=== PATIENT | female | born 1965 | race Caucasian/White ===

== ENCOUNTER 2018-02-23 11:26 | Emergency (ER) | payer BC ==
--- NOTE | 2018-02-23 12:51 | UC ---
Neck Pain HPI - HPI Summary HPI Summary: 52-year-old female comes in with a chief complaint of right upper neck swelling. This happened just prior to arrival while she was eating. The main area is just below the angle of the jaw on the right. It was mildly painful. Patient denies any dental pain. Pain is worse with opening and closing of the mouth. Denies any difficulty swallowing. No headache the patient feels well otherwise. - History of Current Complaint Chief Complaint: UCSkin Stated Complaint: SOFT TISSUE COMPLAINT Time Seen by Provider: 02/23/18 12:37 Pain Intensity: 3 - Allergies/Home Medications Allergies/Adverse Reactions: Allergies Allergy/AdvReac Type Severity Reaction Status Date / Time No Known Allergies Allergy Verified 02/23/18 12:02 Home Medications: Home Medications Cholecalciferol (Vitamin D3) [Vitamin D3] 1,000 unit PO 02/23/18 [History] Ferrous Sulfate [Iron High-Potency] 325 mg PO 02/23/18 [History] Fluticasone NASAL SPRAY 50MCG* [Flonase NASAL SPRAY 50MCG*] 2 spray BOTH NARES DAILY 02/23/18 [History Confirmed 02/23/18] LoraTADine TAB(NF) [Claritin 10 MG TAB(NF)] 10 mg PO DAILY 02/23/18 [History Confirmed 02/23/18] Magnesium Oxide [Magnesium] 500 mg PO 02/23/18 [History] Multivitamin [Multivitamins] 1 cap PO 02/23/18 [History] PMH/Surg Hx/FS Hx/Imm Hx Previously Healthy: Yes - Surgical History Surgical History: Yes Surgery Procedure, Year, and Place: 2 ovarian cysts, d&c, wisdom teeth extraction, bilat ear tubes. - Family History Known Family History: Negative: Diabetes - Social History Alcohol Use: Occasionally Substance Use Type: None Smoking Status (MU): Never Smoked Tobacco Review Of Systems Constitutional: Positive: Negative Skin: Positive: Negative Eyes: Positive: Negative ENT: Positive: Other - see hpi Respiratory: Positive: Negative Cardiovascular: Positive: Negative Gastrointestinal: Positive: Negative Musculoskeletal: Positive: Negative Neurological: Positive: Negative Psychological: Positive: Negative All Other Systems Reviewed And Are Negative: Yes Physical Exam Triage Information Reviewed: Yes Appearance: Well-Appearing, No Pain Distress, Well-Nourished Vital Signs: Initial Vital Signs Temp 97.9 F 02/23/18 11:57 Pulse 67 10/29/18 11:57 Resp 18 02/23/18 11:57 BP 127/62 02/23/18 11:57 Pulse Ox 100 02/23/18 11:57 Vital Signs Reviewed: Yes Eye Exam: Normal Eyes: Positive: Conjunctiva Clear ENT: Positive: Pharynx normal, TMs normal, Other. Negative: Tonsillar swelling , Tonsillar exudate, Muffled voice, Hoarse voice Neck: Positive: Other: - Patient has some swelling around any the right angle of the jaw is mildly tender to palpation it's not pulsatile. Is in the area of the right submandibular gland. The right parotid gland does not feel swollen on exam. Respiratory: Positive: No respiratory distress Musculoskeletal Exam: Normal Musculoskeletal: Positive: Strength Intact, ROM Intact Neurological Exam: Normal Neurological: Positive: Alert Psychological Exam: Normal Psychological: Positive: Normal Response To Family, Age Appropriate Behavior Skin Exam: Normal Neck Pain Course/Dx - Course Course Of Treatment: Order Information: CT SOFT TISSUE NECK W/O. Accession Number: [id number]. CPT: 49281. INDICATION: RIGHT upper neck swelling sudden onset at 11:30 AM while eating. Swelling has. subsequently subsided. COMPARISON: September 28, 2007 MRI. TECHNIQUE: Multidetector CT images skull base to lung apices without IV contrast. Multiplanar reformation. REPORT: Artifact from dental amalgam. Assessment of the neck viscera is limited without IV contrast. There is enlargement of the deep and superficial lobes of the RIGHT parotid gland compared. with the LEFT with mild surrounding periglandular soft tissue edema. No conspicuous stones. evident at the RIGHT parotid gland or along the expected course of the parotid duct. No. loculated soft tissue plane fluid collection evident. Unremarkable submandibular glands and thyroid gland. Unremarkable pharyngeal mucosal space contours, larynx, and subglottic airway. Symmetric. parapharyngeal fat. Negative for neck lymphadenopathy based on short axis size criteria. Dominant visualized. 0.9 cm short axis RIGHT jugulodigastric node within normal limits. Negative for calcific plaque at the carotid bifurcations. Unremarkable visualized lung apices. Clear partially visualized paranasal sinuses and mastoid air spaces. No fracture or suspicious osseous lesions evident. Preserved cervical spine disc spaces. IMPRESSION: #. There is enlargement of the deep and superficial lobes of the RIGHT parotid gland. compared with the LEFT with mild surrounding periglandular soft tissue edema. No. conspicuous stones evident at the RIGHT parotid gland or along the expected course of the. parotid duct. No loculated soft tissue plane fluid collection evident within limits of. noncontrast CT. Correlate for parotitis. Consider potential recent parotid duct stone. passage. . < Electronically signed by Isma Meneses MD in OV> 02/23/[address] Discuss[address] the CT results with the patient. Most probable cause of the parotid swelling is a past stone. Patient has continued to improve in clinic. I gave her the up -to-date patient's handout for parotitis. She'll go ahead and treat and follow- up with her primary care doctor. If she does not improve consider an ENT follow -up. - Differential Dx/Diagnosis Provider Diagnoses: parotitis Discharge - Sign-Out/Discharge Documenting (check all that apply): Patient Departure All imaging exams completed and their final reports reviewed: Yes - Discharge Plan Condition: Stable Disposition: HOME Prescriptions: Amoxicillin/Clavulanate TAB* [Augmentin TAB 875*] 875 mg PO BID #20 tab Patient Education Materials: Parotid Duct Obstruction (ED), Sialoadenitis (ED) Referrals: Joellen Guthrie MD [Primary Care Provider] - Dustin Hernandez MD [Medical Doctor] - Additional Instructions: FOLLOW UP WITH YOUR PRIMARY DOCTOR OR ENT IF NOT COMPLETELY IMPROVED. GET RECHECKED FOR ANY WORSENING OF YOUR CONDITION OR QUESTIONS OR CONCERNS. - Billing Disposition and Condition Condition: STABLE Disposition: Home
--- NOTE | 2018-02-23 13:36 | RAD ---
INDICATION: RIGHT upper neck swelling sudden onset at 11:30 AM while eating. Swelling has subsequently subsided. COMPARISON: September 28, 2007 MRI. TECHNIQUE: Multidetector CT images skull base to lung apices without IV contrast. Multiplanar reformation. REPORT: Artifact from dental amalgam. Assessment of the neck viscera is limited without IV contrast. There is enlargement of the deep and superficial lobes of the RIGHT parotid gland compared with the LEFT with mild surrounding periglandular soft tissue edema. No conspicuous stones evident at the RIGHT parotid gland or along the expected course of the parotid duct. No loculated soft tissue plane fluid collection evident. Unremarkable submandibular glands and thyroid gland. Unremarkable pharyngeal mucosal space contours, larynx, and subglottic airway. Symmetric parapharyngeal fat. Negative for neck lymphadenopathy based on short axis size criteria. Dominant visualized 0.9 cm short axis RIGHT jugulodigastric node within normal limits. Negative for calcific plaque at the carotid bifurcations. Unremarkable visualized lung apices. Clear partially visualized paranasal sinuses and mastoid air spaces. No fracture or suspicious osseous lesions evident. Preserved cervical spine disc spaces. IMPRESSION: #. There is enlargement of the deep and superficial lobes of the RIGHT parotid gland compared with the LEFT with mild surrounding periglandular soft tissue edema. No conspicuous stones evident at the RIGHT parotid gland or along the expected course of the parotid duct. No loculated soft tissue plane fluid collection evident within limits of noncontrast CT. Correlate for parotitis. Consider potential recent parotid duct stone passage.
[2018-02-23 13:56] VITALS: BP 129/74
== END 2018-02-23 14:35 | disposition home or self-care (01) ==
LOC: UCEAST 11:26
DX: K11.20 Sialoadenitis, unspecified (principal)
CPT/HCPCS: 70490; 99212; G0463

== ENCOUNTER 2019-05-27 08:37 | Emergency (ER) | payer BC ==
--- OUTSIDE RECORDS SUMMARY | 2019-05-27 08:43 | XMS REPORT | Continuity of Care Document ---
:1965 External Reference #:[id number] Author Name Verna Baig PA-C Address [address] [place] [address] Care Team Providers Name Role Phone Kourtney Santos M.D. - Neurology Care Team Information Steam Presser Shirley Garcia NP - Family Care Team Information Steam Presser [phone] Problems Description No Information Available Social History Type Date Description Comments Sex Unknown Cigarette Use Negative For Current Cigarette Smoker Tobacco Use Start: Unknown Never Smoked Cigars Tobacco Use Start: Unknown Never Smoked A Pipe Smokeless Tobacco Never Used Smokeless Tobacco ETOH Use Currently occasionally consumes alcohol Tobacco Use Start: Unknown Patient has never smoked Smoking Status Reviewed: 05/17/19 Patient has never smoked Allergies, Adverse Reactions, Alerts Description No Known Drug Allergies Medications Active Medications SIG Qnty Indications Ordering Provider Date Clindamycin HCL take 1 pill 3 42caps Dustin Antoine 05/10/2019 300mg Capsules times a day MD Mary for 2 weeks. Prednisone 4 tabs po 30tabs Dustin Antoine 05/10/2019 10mg Tablets every day x3 MD Mary d, then 3 tabs po every day x3 d, then 2 tabs po every day x3d, then 1 tab po qd x3d, then off Meclizine HCL one po tid Unknown 25mg Iron 1 by mouth as Shirley Garcia GRATING MACHINE OPERATOR 28mg Tablets needed Omeprazole Shirley Garcia GRATING MACHINE OPERATOR 20mg Capsules DR Donovan Treadwell MD, 80mcg/Act Aerosol Paxton Treadwell MD, 200-25mcg/Inh Christopher Aerosol Levocetirizine Eben FLANAGAN, Dihydrochloride Christopher 5mg Tablets Hydroxychloroquine Cherrie Llanos, Sulfate Adria 200mg Tablets Vitamin E qd Unknown 180mg Capsules Magnesium as directed Unknown 400mg Tablets Multi For Her 1 by mouth Unknown Capsules every day Hair/Skin/Nails qd Unknown Capsules Immunizations Description No Information Available Vital Signs Date Vital Result Comment 05/17/2019 10:44am Weight 240.00 lb Weight 108.864 kg Height 66.25 inches 5'6.25" Height in cm's 168.3 cm BMI (Body Mass Index) 38.4 kg/m2 05/10/2019 2:08pm Weight 240.00 lb Weight 108.864 kg Height 66.25 inches 5'6.25" Height in cm's 168.3 cm BMI (Body Mass Index) 38.4 kg/m2 Results Test Acquired Date Facility Test Result H/L Range Note Wound 05/10/2019 [facility] Wound/Misc SEE RESULT 1 Culture/Sens c/o Department of Laboratories [place] [address] Stain [phone] 1 SEE RESULT BELOW Name: AFR[place] TIWARI : [address]: Verna Baig PA-C Acct: [id number] Unit: [id number] AGE: 53 Location: [facility] Re05/10/19 SEX: F Status: REG REF SPEC: [id number] OVI: 05/10/19-[address]: Verna Baig PA-C REQ: [id number] RECD: 05/11/19 STATUS: COMP _ SOURCE: MISC SOURC SPDESC: ORDERED: Culture Stain COMMENTS: [id number] Right sinus Specimen Description right sinus Procedure Result Reported Site Wound/Misc Gram Stain Final 05/11/19- 1603 ML 2+ Nucleated Cells No Neutrophils Observed No Organisms Seen Wound/Misc Culture Final 05/13/19- 0845 ML No Growth Day 2 * ML - Main Lab . END OF REPORT DEPARTMENT OF PATHOLOGY, [address] [place] [address] Jeronimo Pro M.D. Director [facility] # [id number] Procedures Date Code Description Status 05/17/2019 97110 Tympanometry Completed 05/10/2019 07327 Tympanometry Completed 05/10/2019 76253 Comprehensive Audiogram Completed 05/10/2019 73758 Nasal Endoscopy, Diagnostic Completed Medical Devices Description No Information Available Encounters Type Date Location Provider Dx Diagnosis Office Visit 05/17/2019 Brenna Baig J32.8 Other chronic 10:45a 04-28-2019 PA-Adriana sinusitis H65.22 Chronic serous otitis media, left ear H69.83 Other specified disorders of Eustachian tube, bilateral Office Visit 05/10/2019 2:15p Brenna 04-28-2019 Verna Baig J32.8 Other chronic PA-C sinusitis H65.22 Chronic serous otitis media, left ear H69.83 Other specified disorders of Eustachian tube, bilateral Assessments Date Code Description Provider 05/17/2019 J32.8 Other chronic sinusitis Verna Baig PA-C 05/17/2019 H65.22 Chronic serous otitis media, left ear Verna Baig PA-C 05/17/2019 H69.83 Other specified disorders of Eustachian tube, Verna Baig PA-C bilateral 05/10/2019 J32.8 Other chronic sinusitis Verna Baig PA-C 05/10/2019 H65.22 Chronic serous otitis media, left ear Marry Virgilio, AU.D 05/10/2019 H65.22 Chronic serous otitis media, left ear Verna Baig PA-C 05/10/2019 H69.83 Other specified disorders of Eustachian tube, Marry Poole , AU.D bilateral 05/10/2019 H69.83 Other specified disorders of Eustachian tube, Verna Baig PA-C bilateral Plan of Treatment 05/17/2019 - FELIX WellsCJ32.8 Other chronic [id number] Chronic serous otitis media, left earH69.83 Other specified disorders of Eustachian tube , bilateralNew Xrays:CT Sinus without, Ordered: 05/17/19 Functional Status Description No Information Available Mental Status Description No Information Available Referrals Description No Information Available
--- OUTSIDE RECORDS SUMMARY | 2019-05-27 08:43 | XMS REPORT | Continuity of Care Document ---
:1965 External Reference #:[id number] Author Name Dustin Hernandez MD Address [address] [place] [address] Care Team Providers Name Role Phone Kourtney Santos M.D. - Neurology Care Team Information Filling Machine Set Up Mechanic [phone] Shirley Garcia NP - Family Care Team Information Filling Machine Set Up Mechanic [phone] Problems Description No Information Available Social History Type Date Description Comments Sex Unknown Cigarette Use Negative For Current Cigarette Smoker Tobacco Use Start: Unknown Never Smoked Cigars Tobacco Use Start: Unknown Never Smoked A Pipe Smokeless Tobacco Never Used Smokeless Tobacco ETOH Use Currently occasionally consumes alcohol Tobacco Use Start: Unknown Patient has never smoked Smoking Status Reviewed: 05/25/19 Patient has never smoked Allergies, Adverse Reactions, Alerts Description No Known Drug Allergies Medications Active Medications SIG Qnty Indications Ordering Provider Date Ondansetron HCL 1 tab by mouth 30tabs Dustin Antoine 05/25/2019 8mg Tablets every 8 hours MD Mary as needed for nausea Ofloxacin (Otic) 4 drops to 10ml Dustin Antoine 05/25/2019 0.3% Solution left ear twice MD Mary a day for 3 days Meclizine HCL one po tid Unknown 25mg Iron 1 by mouth as Shirley Garcia NP 28mg Tablets needed Omeprazole Shirley Garcia NP 20mg Capsules DR Bucky Treadwell MD, Dihydrochloride Christopher 5mg Tablets Hydroxychloroquine Cherrie Llanos, Sulfate Adria 200mg Tablets Vitamin E qd Unknown 180mg Capsules Magnesium as directed Unknown 400mg Tablets Multi For Her 1 by mouth Unknown Capsules every day Hair/Skin/Nails qd Unknown Capsules History Medications Clindamycin HCL take 1 pill 3 42caps Dustin Hernandez, 05/10/2019 - 300mg times a day for 05/24/2019 Capsules 2 weeks. Prednisone 4 tabs po every 30tabs Dustin Hernandez, 05/10/2019 - 10mg Tablets day x3 d, then 3 05/24/2019 tabs po every day x3 d, then 2 tabs po every day x3d, then 1 tab po qd x3d, then off Immunizations Description No Information Available Vital Signs Date Vital Result Comment 05/25/2019 3:59pm Weight 240.00 lb Weight 108.864 kg Height 66.25 inches 5'6.25" Height in cm's 168.3 cm BMI (Body Mass Index) 38.4 kg/m2 05/17/2019 10:44am Weight 240.00 lb Weight 108.864 kg Height 66.25 inches 5'6.25" Height in cm's 168.3 cm BMI (Body Mass Index) 38.4 kg/m2 Results Test Acquired Date Facility Test Result H/L Range Note Wound 05/10/2019 [facility] Wound/Misc SEE RESULT 1 Culture/Sens c/o Department of Laboratories [place] [address] Stain [phone] 1 SEE RESULT BELOW Name: ABE TIWARI : [address]: Verna Baig PA-C Acct: [id number] Unit: [id number] AGE: 53 Location: [facility] Re05/10/19 SEX: F Status: REG REF SPEC: [id number] OVI: 05/10/19-1537 [facility] DR: Verna Baig PA-C REQ: [id number] RECD: 05/11/19 STATUS: COMP _ SOURCE: MISC SOURC SPDESC: ORDERED: Culture Stain COMMENTS: [id number] Right sinus Specimen Description right sinus Procedure Result Reported Site Wound/Misc Gram Stain Final 05/11/19- 1603 ML 2+ Nucleated Cells No Neutrophils Observed No Organisms Seen Wound/Misc Culture Final 05/13/19- 0845 ML No Growth Day 2 * ML - Main Lab . END OF REPORT DEPARTMENT OF PATHOLOGY, [address], [place], [place] [address] Jeronimo Pro M.D. Director [facility] # [id number] Procedures Date Code Description Status 05/25/2019 98839 Tympanostomy W/Tube Local Or Topical Anes. Completed 05/17/2019 44770 Tympanometry Completed 05/10/2019 13137 Tympanometry Completed 05/10/2019 78481 Comprehensive Audiogram Completed 05/10/2019 70298 Nasal Endoscopy, Diagnostic Completed Medical Devices Description No Information Available Encounters Type Date Location Provider Dx Diagnosis Office Visit 05/17/2019 Chantal Hubbard32.8 Other chronic 10:45a 04-28-2019 PA-C sinusitis H65.22 Chronic serous otitis media, left ear H69.83 Other specified disorders of Eustachian tube, bilateral Office Visit 05/10/2019 2:15p Brenna 04-28-2019 Chantal Wells32.8 Other chronic PA-C sinusitis H65.22 Chronic serous otitis media, left ear H69.83 Other specified disorders of Eustachian tube, bilateral Assessments Date Code Description Provider 05/25/2019 J32.9 Chronic sinusitis, unspecified Dustin Hernandez MD 05/25/2019 H68.022 Chronic Eustachian salpingitis, left ear Dustin Hernandez MD 05/17/2019 J32.8 Other chronic sinusitis Verna Baig PA-C 05/17/2019 H65.22 Chronic serous otitis media, left ear Verna Baig PA-C 05/17/2019 H69.83 Other specified disorders of Eustachian Marry Nabeelst, AU.D tube, bilateral 05/17/2019 H69.83 Other specified disorders of Eustachian JOLYNN Wells-C tube, bilateral 05/10/2019 J32.8 Other chronic sinusitis Verna Baig PA-C 05/10/2019 H65.22 Chronic serous otitis media, left ear Marry Crast, AU.D 05/10/2019 H65.22 Chronic serous otitis media, left ear Verna Baig PA-C 05/10/2019 H69.83 Other specified disorders of Eustachian Marry Poole AU.D tube, bilateral 05/10/2019 H69.83 Other specified disorders of Eustachian Verna Baig PA-C tube, bilateral Plan of Treatment Future Appointment(s):06/24/2019 2:15 pm - Dustin Hernandez MD at [facility] - Dustin Hernandez, J32.9 Chronic sinusitis, [id number] Chronic Eustachian salpingitis, left ear Functional Status Description No Information Available Mental Status Description No Information Available Referrals Description No Information Available
--- OUTSIDE RECORDS SUMMARY | 2019-05-27 08:43 | XMS REPORT | Continuity of Care Document ---
:1965 External Reference #:[id number] Author Name Verna Baig PA-C Address [address] [place] [address] Care Team Providers Name Role Phone Kourtney Santos M.D. - Neurology Care Team Information Classification And Treatment Director Shirley Garcia NP - Family Care Team Information Classification And Treatment Director [phone] Problems Description No Information Available Social History Type Date Description Comments Sex Unknown Cigarette Use Negative For Current Cigarette Smoker Tobacco Use Start: Unknown Never Smoked Cigars Tobacco Use Start: Unknown Never Smoked A Pipe Smokeless Tobacco Never Used Smokeless Tobacco ETOH Use Currently occasionally consumes alcohol Tobacco Use Start: Unknown Patient has never smoked Smoking Status Reviewed: 05/09/19 Patient has never smoked Allergies, Adverse Reactions, [...] Iron 1 by mouth as Shirley Garcia SEMICONDUCTOR PACKAGE SYMBOL STAMPER 28mg Tablets needed Omeprazole Shirley Garcia SEMICONDUCTOR PACKAGE SYMBOL STAMPER 20mg Capsules DR Donovan Treadwell MD, 80mcg/Act [...] Available Vital Signs Date Vital Result Comment 05/10/2019 2:08pm Weight 240.00 lb Weight 108.864 kg Height 66.25 inches 5'6.25" Height in cm's 168.3 cm BMI (Body Mass Index) 38.4 kg/m2 10/13/2013 2:58pm BP Systolic 137 mmHg BP Diastolic 100 mmHg Heart Rate 70 /min Respiratory Rate 16 /min Weight 214.00 lb Weight 97.070 kg Height 66.25 inches 5'6.25" Height in cm's 168.3 cm BMI (Body Mass Index) 34.3 kg/m2 Results Description No Information Available Procedures Date Code Description Status 05/10/2019 74965 Tympanometry Completed 05/10/2019 56031 Comprehensive Audiogram Completed 05/10/2019 06269 Nasal Endoscopy, Diagnostic Completed Medical Devices Description No Information Available Encounters Type Date Location Provider Dx Diagnosis Office Visit 05/10/2019 [facility] Chantal Wells32.8 Other chronic 2:15p 04-28-2019 [facility] sinusitis H65.22 Chronic serous otitis media, left ear H69.83 Other specified disorders of Eustachian tube, bilateral Assessments Date Code Description Provider 05/10/2019 J32.8 Other chronic sinusitis Verna Baig PA-C 05/10/2019 H65.22 Chronic serous otitis media, left ear Verna Baig PA-C 05/10/2019 H69.83 Other specified disorders of Eustachian tube, Verna Baig PA-C bilateral Plan of Treatment Future Appointment(s):05/24/2019 2:45 pm - Verna Baig PA-C at [facility] - FELIX WellsCJ32.8 Other chronic [id number] Chronic serous otitis media, left earH69.83 Other specified disorders of Eustachian tube , bilateralFollow up:KRYSTLE 2-3 weeks recheck with scope Functional Status Description No Information Available Mental Status Description No Information Available Referrals Description No Information Available
--- OUTSIDE RECORDS SUMMARY | 2019-05-27 08:44 | XMS REPORT | Continuity of Care Document ---
:1965 External Reference #:[id number] Author Name Shirley Garcia N.P. (transmitted by agent of provider Brenda Powell) Address [address], [place] [address] Care Team Providers Name Role Phone Rosaura Swan MD - Internal Care Team Information Hotel Director Medicine Joellen Guthrie MD - Internal Care Team Information Hotel Director [phone] Medicine Problems Active Problems Provider Date Asthma without status asthmaticus Shanta Galindo MD Onset: 08/16/2015 Hematuria syndrome Shirley Garcia, N.PTresa Onset: 01/21/2011 Allergic rhinitis Shirley Garcia N.PTresa Onset: 01/21/2011 Overlapping malignant melanoma of skin Shirley Garcia N.PTresa Onset: 01/21/2011 Dyspnea Shanta Galindo MD Onset: 08/01/2015 Obesity Shanta Galindo MD Onset: 08/01/2015 Chest pain Thomas Lyons MD Onset: 02/24/2019 Renal function tests abnormal Thomas Lyons MD Onset: 02/24/2019 Malaise and fatigue Thomas Lyons MD Onset: 02/24/2019 Wheezing Thomas Lyons MD Onset: 02/24/2019 Cough Thomas Lyons MD Onset: 02/24/2019 Social History Type Date Description Comments Sex Unknown ETOH Use Currently consumes alcohol 1 monthly Tobacco Use Start: Unknown Patient has never smoked Smoking Status Reviewed: 05/03/19 Patient has never smoked Exercise Type/Frequency Exercises sporadically Allergies, Adverse Reactions, Alerts Active Allergies Reaction Severity Comments Date No Known Drug Allergy 12/20/2009 Medications Active Medications SIG Qnty Indications Ordering Date Provider Hydroxychloroquine take 2 tablets 90tabs Adria Grier, 06/09/2018 Sulfate by mouth every M.D. 200mg Tablets day ongoing D3 Super Strength take one 90caps Shirley Garcia, 02/05/2017 2000Unit capsule/tablet N.P. Capsules daily by mouth Omeprazole Take 1 Capsule 30caps R06.02 Shirley Jose, 06/20/[address] By Mouth Every N.P. Day Fluticasone Propionate spray one 16units Shirley Garcia, 04/22/2012 spray in each N.P. 50mcg/Act Suspension nostril once daily Claritin 1 tablet dailY 90caps Estephania Juan, 10mg Capsules M.D., FACP Slow Fe 1 by mouth Unknown 160(50Fe) mg Tablets ER every day Hair/Skin/Nails 1 - 2 by mouth Unknown Tablets every day Multi Complete daily Unknown Capsules Magnesium 1 by mouth Unknown 400mg Tablets every day (OTC) History Medications Doxycycline Hyclate 1 by mouth twice 20tabs R05 Shirley Garcia, 03/31/2019 - a day x 10 days N.P. 04/10/2019 100mg Tablets Azithromycin two tabs day one, 6tabs R05 Shirley Garcia, 03/31/2019 - 250mg one daily till N.P. 03/31/2019 Tablets gone Advair Diskus inhale 1 puff by 60units R05 Shirley Garcia, 03/31/2019 - mouth two times a N.P. 05/03/2019 250-50mcg/Dose day Aerosol Fluconazole one by mouth 5tabs Shirley Garcia, 03/12/2019 - 150mg every 3 days for N.P. 03/30/2019 Tablets 5 doses Levaquin 1 by mouth daily 10tabs J20.9 Shirley Garcia, 03/11/2019 - 500mg for 7 days N.P. 03/18/2019 Tablets Prednisone 4 tablets by 40tabs J20.9 Shirley Garcia, 03/11/2019 - 10mg mouth for 4 N.P. 03/27/2019 Tablets days,3 tablets by mouth for 4 days, 2 tablets by mouth for 4 days, 1 tablet by mouth for 4 days Flovent HFA Inhale 2 Puffs By 12units J20.9 Shirley Garcia, 03/11/2019 - Mouth Two Times N.P. 03/30/2019 110mcg/Act Aerosol Daily Furosemide 1 by mouth every 4tabs Thomas Lyons MD 03/03/2019 - 20mg day for 4 days 03/30/2019 Tablets then stop. Proair Respiclick 2 puffs by mouth 1units R05 Ambar Chung, 02/10/2019 - every 4-6 hours M.D. 03/30/2019 108(90Base) mcg/Act as needed for Aerosol cough or shortness of breath Amoxicillin/Clavulan 1 tab by mouth 20tabs J32.9 Ambar Chung, 2018 - ate Potassium twice a day X 10 M.D. 02/20/2019 days 875-125mg Tablets Immunizations CPT Code Status Date Vaccine Reaction Lot # [id number] Given 02/03/2019 Influenza Virus Vaccine, Quadrivalent, Split, Preservative Free 14187 Given 03/10/2018 Influenza Virus Vaccine, Quadrivalent, Split, Preservative Free 96331 Given 02/05/2017 Tdap - [id number] Tetanus/Diptheria/Acellula r Pertussis 53814 Given 02/05/2017 Influenza Virus Vaccine, [id number] Quadrivalent, Split, Preservative Free 55958 Given 02/05/2016 Influ Virus Vaccine, no reaction noted ... [id number] Quadrivalent, Split Virus, [id number] [address] Given 01/30/2015 Influenza Virus Vaccine, [id number] Quadrivalent, Split, Preservative Free 53172 Given 01/28/2014 Influenza Virus Vaccine, [id number] Quadrivalent, Split, Preservative Free 59714 Given 01/25/2013 Flu Vaccine Split Virus [id number] Preservative Free For Indiv 3Yr Older Q2038 Given 01/24/2012 Fluzone Vaccine [id number] 77063 Given 01/21/2011 Influenza Virus 3Yrs & [id number] Over 22293 Given 02/02/2010 Influenza Virus 3Yrs & Over 02309 Given 02/06/2009 Influenza Virus 3Yrs & Over 27111 Given 02/18/2008 Influenza Virus 3Yrs & Over 15407 Given 03/10/2007 Influenza Virus 3Yrs & Over 97827 Given 11/18/2006 Tdap - Tetanus/Diptheria/Acellula r Pertussis 61834 Given 02/13/2006 Influenza Virus 3Yrs & Over Vital Signs Date Vital Result Comment 05/03/2019 2:29pm Height 66.5 inches 5'6.50" Weight 247.12 lb Heart Rate 70 /min BP Systolic Sitting 122 mmHg BP Diastolic Sitting 80 mmHg Body Temperature 98.3 F O2 % BldC Oximetry 97 % BMI (Body Mass Index) 39.3 kg/m2 03/31/2019 3:04pm Height 66.5 inches 5'6.50" Weight 246.50 lb Heart Rate 78 /min BP Systolic Sitting 128 mmHg BP Diastolic Sitting 75 mmHg Body Temperature 97.5 F O2 % BldC Oximetry 97 % BMI (Body Mass Index) 39.2 kg/m2 Results Test Acquired Date Facility Test Result H/L Range Note Laboratory test 03/31/2019 [facility] Lyme Screen Negative Negative finding [address] W/ [place] [address] WB [phone] Tick-Borne Panel 03/31/2019 [facility] Babesia Negative Negative PCR Blood [address] [place] [address] [phone] Babesia ducani Negative Negative Babesia divergens/Mo-1 Negative Negative 1 Anaplasma phagocytophilum Negative Negative Ehrlichia chaffeensis Negative Negative Ehrlichia ewingii/canis Negative Negative Ehrlichia muris eauclairensis Negative Negative 2 B. miyamotoi PCR, B Negative Negative 3 Laboratory test 03/24/2019 [facility] Erythrocyte Sed 2 mm/Hr Normal 0-29 [address] [place] [address] [phone] C Reactive Protein 1.54 mg/L Normal <8.01 5 CBC Auto 03/24/2019 [facility] White Blood 9.5 10^3/uL Normal 3.5-10.[address] [place] [address] [phone] Red Blood Count 4.90 10^6/uL High 3.70-4.87 Hemoglobin 14.1 g/dL Normal 12.0-16.0 Hematocrit 42 % Normal 35-47 Mean Corpuscular Volume 85 fL Normal 80-97 Mean Corpuscular Hemoglobin 29 pg Normal 27-31 Mean Corpuscular HGB Conc 34 g/dL Normal 31-36 Red Cell Distribution Width 13 % Normal 10-15 Platelet Count 258 10^3/uL Normal 150-450 Mean Platelet Volume 8.6 fL Normal 7.4-10.4 Abs Neutrophils 7.7 10^3/uL Normal 1.5-7.7 Abs Lymphocytes 1.2 10^3/uL Normal 1.0-4.8 Abs Monocytes 0.5 10^3/uL Normal 0-0.8 Abs Eosinophils 0.1 10^3/uL Normal 0-0.6 Abs Basophils 0.0 10^3/uL Normal 0-0.2 Abs Nucleated RBC 0.0 10^3/uL Granulocyte % 81.0 % Lymphocyte % 12.9 % Monocyte % 5.1 % Eosinophil % 0.8 % Basophil % 0.2 % Nucleated Red Blood Cells % 0.0 Comp Metabolic 03/24/2019 [facility] Sodium 141 mmol/L Normal 135-[address] [place] [address] [phone] Potassium 4.4 mmol/L Normal 3.5-5.0 Chloride 104 mmol/L Normal 101-111 Co2 Carbon Dioxide 30 mmol/L Normal 22-32 Anion Gap 7 mmol/L Normal 2-11 Calcium 9.8 mg/dL Normal 8.6-10.3 Albumin 4.1 g/dL Normal 3.2-5.2 Total Bilirubin 0.30 mg/dL Normal 0.2-1.0 Glucose 96 mg/dL Normal 70-100 Blood Urea Nitrogen 19 mg/dL Normal 6-24 Creatinine 0.96 mg/dL High 0.51-0.95 BUN/Creatinine Ratio 19.8 Normal 8-20 Total Protein 6.4 g/dL Normal 6.4-8.9 Globulin 2.3 g/dL Normal 2-4 Albumin/Globulin Ratio 1.8 Normal 1-3 Alkaline Phosphatase 62 U/L Normal 34-104 Alt 22 U/L Normal 7-52 Ast 15 U/L Normal 13-39 Egfr Non- 61.3 >60 Egfr 74.1 >60 6 CBC Auto 02/25/2019 [facility] White Blood 5.1 10^3/uL Normal 3.5-10.8 [place] [address] [phone] Red Blood Count 4.74 10^6/uL Normal 3.70-4.87 Hemoglobin 13.5 g/dL Normal 12.0-16.0 Hematocrit 40 % Normal 35-47 Mean Corpuscular Volume 85 fL Normal 80-97 Mean Corpuscular Hemoglobin 28 pg Normal 27-31 Mean Corpuscular HGB Conc 33 g/dL Normal 31-36 Red Cell Distribution Width 13 % Normal 10-15 Platelet Count 225 10^3/uL Normal 150-450 Mean Platelet Volume 9.0 fL Normal 7.4-10.4 Abs Neutrophils 3.1 10^3/uL Normal 1.5-7.7 Abs Lymphocytes 1.3 10^3/uL Normal 1.0-4.8 Abs Monocytes 0.4 10^3/uL Normal 0-0.8 Abs Eosinophils 0.2 10^3/uL Normal 0-0.6 Abs Basophils 0.0 10^3/uL Normal 0-0.2 Abs Nucleated RBC 0.0 10^3/uL Granulocyte % 61.0 % Lymphocyte % 26.1 % Monocyte % 7.7 % Eosinophil % 4.6 % Basophil % 0.6 % Nucleated Red Blood Cells % 0.0 Laboratory 02/25/2019 [facility] TSH (Thyroid 1.34 Normal 0.34 -5.60 test finding Stim Horm) mcIU/[place] [address] [phone] Vitamin D Total 25(Oh) 42.8 ng/mL Normal 20-50 7 Comp Metabolic 02/25/2019 [facility] Sodium 141 mmol/L Normal 135-145 [place] [address] [phone] Potassium 4.1 mmol/L Normal 3.5-5.0 Chloride 106 mmol/L Normal 101-111 Co2 Carbon Dioxide 29 mmol/L Normal 22-32 Anion Gap 6 mmol/L Normal 2-11 Glucose 79 mg/dL Normal 70-100 Blood Urea Nitrogen 16 mg/dL Normal 6-24 Creatinine 0.97 mg/dL High 0.51-0.95 BUN/Creatinine Ratio 16.5 Normal 8-20 Calcium 9.8 mg/dL Normal 8.6-10.3 Total Protein 6.3 g/dL Low 6.4-8.9 Albumin 4.2 g/dL Normal 3.2-5.2 Globulin 2.1 g/dL Normal 2-4 Albumin/Globulin Ratio 2.0 Normal 1-3 Total Bilirubin 0.30 mg/dL Normal 0.2-1.0 Alkaline Phosphatase 62 U/L Normal 34-104 Alt 16 U/L Normal 7-52 Ast 16 U/L Normal 13-39 Egfr Non- 60.5 >60 Egfr 73.3 >60 8 Laboratory test 02/25/2019 [facility] B-Type 24 pg/mL <=[address] [place] [address] Peptide BNP [phone] D Dimer Quantitative < 200 ng/mL Normal Less Than 230 9 Order 02/24/2019 [facility] In-House EKG viewed by Dr. Lyons Urinalysis Profile 12/23/2018 [facility] Urine Color Yellow [address] [place] [address] [phone] Urine Appearance Cloudy Urine Specific [place] 1.023 Normal 1.010-1.030 Urine pH 5.0 Normal 5-9 Urine Urobilinogen Negative Negative Urine Ketones Negative Negative Urine Protein Negative Negative Urine Leukocytes Negative Negative Urine Blood Negative Negative * * Abnormal Negative 10 Urine Nitrite Negative Negative Urine Bilirubin Negative Negative Urine Glucose Negative Negative Laboratory test 12/17/2018 [facility] Erythrocyte Sed 8 mm/Hr Normal 0-[address] [place] [address] [phone] Reactive Protein 3.58 mg/L Normal <8.01 CBC Auto 12/17/2018 [facility] White Blood 4.2 10^3/uL Normal 3.5-10.[address] [place] [address] [phone] Red Blood Count 4.93 10^6/uL High 3.70-4.87 Hemoglobin 13.8 g/dL Normal 12.0-16.0 Hematocrit 42 % Normal 35-47 Mean Corpuscular Volume 86 fL Normal 80-97 Mean Corpuscular Hemoglobin 28 pg Normal 27-31 Mean Corpuscular HGB Conc 33 g/dL Normal 31-36 Red Cell Distribution Width 14 % Normal 10-15 Platelet Count 234 10^3/uL Normal 150-450 Mean Platelet Volume 8.7 fL Normal 7.4-10.4 Abs Neutrophils 2.4 10^3/uL Normal 1.5-7.7 Abs Lymphocytes 1.3 10^3/uL Normal 1.0-4.8 Abs Monocytes 0.4 10^3/uL Normal 0-0.8 Abs Eosinophils 0.1 10^3/uL Normal 0-0.6 Abs Basophils 0.0 10^3/uL Normal 0-0.2 Abs Nucleated RBC 0.0 10^3/uL Granulocyte % 56.0 % Lymphocyte % 31.3 % Monocyte % 8.8 % Eosinophil % 3.1 % Basophil % 0.8 % Nucleated Red Blood Cells % 0.0 Comp Metabolic 12/17/2018 [facility] Sodium 141 mmol/L Normal 135-[address] [place] [address] [phone] Potassium 4.5 mmol/L Normal 3.5-5.0 Chloride 106 mmol/L Normal 101-111 Co2 Carbon Dioxide 30 mmol/L Normal 22-32 Anion Gap 5 mmol/L Normal 2-11 Glucose 74 mg/dL Normal 70-100 Blood Urea Nitrogen 14 mg/dL Normal 6-24 Creatinine 0.98 mg/dL High 0.51-0.95 BUN/Creatinine Ratio 14.3 Normal 8-20 Calcium 9.5 mg/dL Normal 8.6-10.3 Total Protein 6.5 g/dL Normal 6.4-8.9 Albumin 4.4 g/dL Normal 3.2-5.2 Globulin 2.1 g/dL Normal 2-4 Albumin/Globulin Ratio 2.1 Normal 1-3 Total Bilirubin 0.40 mg/dL Normal 0.2-1.0 Alkaline Phosphatase 70 U/L Normal 34-104 Alt 16 U/L Normal 7-52 Ast 16 U/L Normal 13-39 Egfr Non- 59.8 >60 Egfr 72.4 >60 11 1 ADDITIONAL INFORMATION This test was developed and its performance characteristics determined by [facility] in a manner consistent with CLIA requirements. This test has not been cleared or approved by the U.S. Food and Drug Administration. 2 ADDITIONAL INFORMATION This test was developed and its performance characteristics determined by [facility] in a manner consistent with CLIA requirements. This test has not been cleared or approved by the U.S. Food and Drug Administration. 3 ADDITIONAL INFORMATION This test was developed and its performance characteristics determined by [facility] in a manner consistent with CLIA requirements. This test has not been cleared or approved by the U.S. Food and Drug Administration. Test Performed by: [place] [address] Milled Lumber Grader: Heath Mcmahon M.D. Ph.D.; CLIA# [id number] 4 Please check labs 2 days before follow up 5 Please check labs 2 days before follow up 6 Because ethnic data is not always readily available, this report includes an eGFR for both -Americans and non- Americans. The National Kidney Disease Education Program (NKDEP) does not endorse the use of the MDRD equation for patients that are not between the ages of 18 and 70, are , have extremes of body size, muscle mass, or nutritional status, or are non- or non-. According to the National Kidney Foundation, irrespective of diagnosis, the stage of the disease is based on the level of kidney function: Stage Description GFR(mL/min/1.73 m(2)) 1 Kidney damage with normal or decreased GFR 90 2 Kidney damage with mild decrease in GFR 60-89 3 Moderate decrease in GFR 30-59 4 Severe decrease in GFR 15-29 5 Kidney failure <15 (or dialysis) 7 Total 25-Hydroxyvitamin D2 and D3 (25-OH-VitD) <10 ng/mL (severe deficiency) 10-19 ng/mL (mild to moderate deficiency) 20-50 ng/mL (optimum levels) 51-80 ng/mL (increased risk of hypercalciuria) >80 ng/mL (toxicity possible) 8 Because ethnic data is not always readily available, this report includes an eGFR for both -Americans and non- Americans. The National Kidney Disease Education Program (NKDEP) does not endorse the use of the MDRD equation for patients that are not between the ages of 18 and 70, are , have extremes of body size, muscle mass, or nutritional status, or are non- or non-. According to the National Kidney Foundation, irrespective of diagnosis, the stage of the disease is based on the level of kidney function: Stage Description GFR(mL/min/1.73 m(2)) 1 Kidney damage with normal or decreased GFR 90 2 Kidney damage with mild decrease in GFR 60-89 3 Moderate decrease in GFR 30-59 4 Severe decrease in GFR 15-29 5 Kidney failure <15 (or dialysis) 9 Please note: The following may produce a false positive D Dimer test: - Rheumatoid factor greater than 60 IU/ml - Plasma hemoglobin greater than 0.05 gm/dl - Bilirubin greater than 50 mg/dl - Lipids greater than 1000 mg/dl - FDP greater than 20 ug/ml 10 *Ascorbic acid is present which may interfere with detection of blood. 11 Because ethnic data is not always readily available, this report includes an eGFR for both -Americans and non- Americans. The National Kidney Disease Education Program (NKDEP) does not endorse the use of the MDRD equation for patients that are not between the ages of 18 and 70, are , have extremes of body size, muscle mass, or nutritional status, or are non- or non-. According to the National Kidney Foundation, irrespective of diagnosis, the stage of the disease is based on the level of kidney function: Stage Description GFR(mL/min/1.73 m(2)) 1 Kidney damage with normal or decreased GFR 90 2 Kidney damage with mild decrease in GFR 60-89 3 Moderate decrease in GFR 30-59 4 Severe decrease in GFR 15-29 5 Kidney failure <15 (or dialysis) Procedures Date Code Description Status 04/26/2019 348567449 Diabetic Retinal Eye Exam Completed 03/30/2019 99340 ECHO Transthorasic Realtime 2D W Doppler & Color Flow Completed Hosp 02/24/2019 78742 EKG Tracing & Interpretation Completed 06/29/2018 [id number] Colonoscopy Completed 05/22/2018 [id number] Mammogram Completed 03/18/2017 [id number] Mammogram Completed 03/01/2016 [id number] Mammogram Completed 02/28/2015 [id number] Mammogram Completed 02/24/2014 [id number] Mammogram Completed 02/04/2013 [id number] Mammogram Completed 08/12/2012 [id number] Mammogram Completed 02/04/2012 [id number] Mammogram Completed 02/08/2011 [id number] Mammogram Completed 01/16/2009 [id number] Mammogram Completed Medical Devices Description No Information Available Encounters Type Date Location Provider Dx Diagnosis Office Visit 03/31/2019 3:00p [facility] Shirley Garcia, N.P. R05 Cough - Ccmob R53.81 Other malaise Office Visit 03/11/2019 10:40a [facility] Shirley Garcia J20.9 Acute bronchitis, Medicine - N.P. unspecified Ccmob Office Visit 02/24/2019 4:40p [facility] Thomas Lyons MD R05 Cough Medicine - [address] R07.89 Other chest pain R06.2 Wheezing R53.83 Other fatigue R06.02 Shortness of breath R94.4 Abnormal results of kidney function studies Office Visit 02/10/2019 2:40p [facility] - mAbar Chung M.D. R05 Cough Ccmob J32.9 Chronic sinusitis, unspecified Office Visit 12/23/2018 Rheumatology Adria M06.4 Inflammatory 2:20p [facility] Of Lisandra Grier M.D. polyarthropathy Z79.899 Other terminal gauger (current) drug therapy R31.9 Hematuria, unspecified R94.4 Abnormal results of kidney function studies Assessments Date Code Description Provider 05/03/2019 Z00.00 Encounter for general adult medical Shirley Varn, N.P. examination without abnormal findings 05/03/2019 Z12.31 Encounter for screening mammogram for Shirley Varn, N.P. malignant neoplasm of breast 05/03/2019 M06.4 Inflammatory polyarthropathy Shirley Varn, N.P. 05/03/2019 E78.00 Pure hypercholesterolemia, unspecified Shirley Varn, N.P. 05/03/2019 D50.9 Iron deficiency anemia, unspecified Shirley Varn, N.P. 05/03/2019 H92.03 Otalgia, bilateral Shirley Varn, N.P. 05/03/2019 R05 Cough Shirley Garcia, N.P. 03/31/2019 R05 Cough Shirley Garcia, N.P. 03/31/2019 R53.81 Other malaise Shirley Garcia, N.P. 03/30/2019 R06.02 Shortness of breath Daniel Aleman M.D. 03/11/2019 J20.9 Acute bronchitis, unspecified Shirley Garcia, N.P. 02/24/2019 R05 Cough Thomas Lyons MD 02/24/2019 R07.89 Other chest pain Thomas Lyons MD 02/24/2019 R06.2 Wheezing Thomas Lyons MD 02/24/2019 R53.83 Other fatigue Thomas Lyons MD 02/24/2019 R06.02 Shortness of breath Thomas Lyons MD 02/24/2019 R94.4 Abnormal results of kidney function studies Thomas Lyons MD 02/10/2019 R05 Cough Ambar Chung M.D. 02/10/2019 J32.9 Chronic sinusitis, unspecified Ambar Chung M.D. 12/23/2018 M06.4 Inflammatory polyarthropathy Adria Grier M.D. 12/23/2018 Z79.899 Other terminal gauger (current) drug therapy Adria Grier M.D. 12/23/2018 R31.9 Hematuria, unspecified Adria Grier M.D. 12/23/2018 R94.4 Abnormal results of kidney function studies Adria Grier M.D. Plan of Treatment Future Appointment(s):05/05/2020 2:20 pm - Shirley [facility].P[facility] Shirley Garcia, N.P.Z00.00 Encounter for general adult medical examination without abnormal findingsComments:For your routine health maintenance: I would encourage you to start a regular exercise program. You need to be getting between 1,000 - 1,200 mg of Calcium in daily. The best way to supplement what you get in your diet is to drink Calcium fortified orange juice. If you take a Calcium supplement be sureit has Vitamin D in it to help absorption. Your Tetanus immunization is up to date. You received this in 2017. It is good for 10 years unless you have a major injury, then it is good for 5 years. Yourcolonoscopy is up to date. You had this in 2019. You will need this repeated in 2- 4 years. Be sure to continue your care with your hotel maintenance engineer.Z12.31 Encounter for screening mammogram for malignant neoplasm of breastComments:I have ordered your routine screening mammogram. The imaging department will give you your results at the time of your visit. I encourage you to do self exams. If you should notice any masses or thickening, please give the office a call.M06.4 Inflammatory polyarthropathyComments:For your arthropathies please continue your management with your specialist.E78.00 Pure hypercholesterolemia, unspecifiedComments:I have ordered blood work to check your cholesterol. You need to fast for 10 hours prior to getting your blood drawn. I will contact you with your results.D50.9 Iron deficiency anemia, unspecifiedComments:I have ordered a complete blood count and ferritin level to check on your anemia and iron deficiency.H92.03 Otalgia, bilateralComments:For your ear complaints I have referred you to Dr Hernandez for further evaluation.Referral:Dustin Hernandez MD, [id number] CoughComments:For your cough, please follow up with DR Treadwell. Functional Status Description No Information Available Mental Status Description No Information Available Referrals Refer to Reason for Referral Status Appt Date Dustin Hernandez MD Patient with bilateral ear pain that comes and Created goes with associated hearing loss referred for evaluation and treatment. Thank you for seeing this very pleasant patient. [address] [place], [place] [id number] [phone] Paxton Treadwell MD Patient with chronic cough not improving with Sent antibiotic and steroids referred for further evaluation. Thank you for seeing this very pleasant patient. [address] [facility] [address] [place], [place] [id number] [phone]
--- OUTSIDE RECORDS SUMMARY | 2019-05-27 08:44 | XMS REPORT | Continuity of Care Document ---
:1965 External Reference #:[id number] Author Name India Hooker O.D. Address [address] [place] [address] Care Team Providers Name Role Phone JoseElsae CONFERENCE PLANNING MANAGER - Nurse Care Team Information Derrick Builder [phone] Practitioner Adria Grier MD - Rheumatology Care Team Information Derrick Builder Problems Active Problems Provider Date Cyst of ovary Onset: Vitreous degeneration India Hooker O.D. Onset: 03/17/2015 Nuclear senile cataract India Hooker O.D. Onset: 03/17/2015 Myopia India Hooker O.D. Onset: 03/17/2015 Facial nerve disorder Isabella Mccoy O.D. Onset: 08/20/2017 Tear film insufficiency Isabella Mccoy O.D. Onset: 08/20/2017 Joint pain Onset: Social History Type Date Description Comments Sex Unknown ETOH Use Denies alcohol use Tobacco Use Start: Unknown Patient has never smoked Recreational Drug Use Denies Drug Use Smoking Status Reviewed: 04/26/19 Patient has never smoked Allergies, Adverse Reactions, Alerts Description No Known Drug Allergies Medications Active Medications SIG Qnty Indications Ordering Provider Date Fluticasone Propionate Unknown 50mcg/Act Suspension Claritin as needed Unknown 10mg Capsules Multivitamins Unknown Capsules Omeprazole Unknown 20mg Capsules DR Iron Unknown 90(18Fe) mg Tablets Vitamin D every day Unknown 1000Unit Tablets Magnesium Unknown 300mg Capsules Healthy Hair/Skin/Nails Unknown Tablets Hydroxychloroquine Sulfate 2 daily Unknown 200mg Tablets Immunizations Description No Information Available Vital Signs Description No Information Available Results Description No Information Available Procedures Description No Information Available Medical Devices Description No Information Available Encounters Description No Information Available Assessments Date Code Description Provider 04/26/2019 H25.13 Age-related nuclear cataract, bilateral India Hooker O.D. 04/26/2019 H43.813 Vitreous degeneration, bilateral India Hooker O.D. 04/26/2019 Z79.899 Other intermediate frame tender (current) drug therapy India Hooker O.D. Plan of Treatment 04/26/2019 - India Hooker O.D.H25.13 Age-related nuclear cataract, bilateralComments:You have been diagnosed with cataracts. If you are happy with your vision as it is now, then we willsee you at your next scheduled appointment. If you feel like your vision is getting worse before your scheduled appointment, please call [facility] at [phone].H43.813 Vitreous degeneration, bilateralComments:You have a Posterior Vitreous Detachment. Please read the pamphlet that was given to you. If you have any changes in your floaters or flashing lights, please contact this office.Z79.899 Other intermediate frame tender (current) drug therapyFollow up:1 Year Follow Up /VF 10-2/ MAC OCT/COLOR You can expect to have your eyes dilated at your next visit. If Dr. Hooker orders any additional testing, it may require extra time. We recommend that you bring sunglasses, as dilation drops often make you light sensitive until they wear off. We always recommend you bring someone to drive you home if you are uncomfortable driving with your eyes dilated. If you have any questions before your next visit, feel free to call our office at . Functional Status Description No Information Available Mental Status Description No Information Available Referrals Description No Information Available
--- OUTSIDE RECORDS SUMMARY | 2019-05-27 08:44 | XMS REPORT | Continuity of Care Document ---
:1965 External Reference #:[id number] Author Name Paxton Treadwell MD Address [address] [facility] [address] [place] [id number] Care Team Providers Name Role Phone Shirley Garcia NP - Family Care Team Information Coreroom Foundry Laborer [phone] Joellen Guthrie MD - Internal Care Team Information Coreroom Foundry Laborer Medicine Problems Active Problems Provider Date Allergic rhinitis Onset: 01/21/2011 Asthma without status asthmaticus Onset: 08/16/2015 Chest pain Onset: 02/24/2019 Cough Onset: 02/24/2019 Dyspnea Onset: 08/01/2015 Hematuria syndrome Onset: 01/21/2011 Malaise and fatigue Onset: 02/24/2019 Obesity Onset: 08/01/2015 Overlapping malignant melanoma of skin Onset: 01/21/2011 Renal function tests abnormal Onset: 02/24/2019 Wheezing Onset: 02/24/2019 Uncomplicated moderate persistent asthma Paxton Treadwell MD Onset: 01/2020 Allergic rhinitis due to pollen Paxton Treadwell MD Onset: 05/07/2019 Social History Type Date Description Comments Sex Unknown Tobacco Use Start: Unknown Patient has never smoked Smoking Status Reviewed: 05/07/19 Patient has never smoked Allergies, Adverse Reactions, Alerts Description No Known Drug Allergies Medications Active Medications SIG Qnty Indications Ordering Provider Date Qnasl 2 puffs each 10.600gm J30.1 Paxton Arnold 05/07/2019 80mcg/Act Aerosol nostril every MD Eben day Xyzal 1 tab by 30tabs J30.1 Paxton Arnold 05/07/2019 5mg Tablets mouth every MD Eben day as needed Advair Diskus inhale 1 puff 60units R05 Shirley Garcia, 03/31/2019 250-50mcg/Dose by mouth two INSTRUCTIONAL TECHNOLOGY SPECIALIST Aerosol times a day D3 Super Strength take one 90caps Shirley Garcia, 02/05/2017 50mcg (2000 capsule/table INSTRUCTIONAL TECHNOLOGY SPECIALIST Ut) Capsules t daily by mouth Fluticasone Propionate spray one 16units Shirley Garcia, 04/22/2012 spray in each INSTRUCTIONAL TECHNOLOGY SPECIALIST 50mcg/Act Suspension nostril once daily Omeprazole Take [address] Capsule By Mouth Every Day Hydroxychloroquine Adria Grier, Sulfate MD 200mg Tablets Claritin one tablet by Unknown 10mg Capsules mouth every morning Flonase Allergy Relief 2 puffs each Unknown nostril every 50mcg/Act Suspension day Slow Release Iron Unknown 45mg Tablets ER Hair/Skin/Nails Unknown Capsules Multivitamin Adult Unknown Tablets Magnesium Unknown 500mg Capsules Vitamin E Unknown 100Unit Capsules Slow Fe 1 by mouth Unknown 160(50Fe) mg Tablets every day ER Naproxen Sodium 1 tab as Unknown 220mg Tablets needed Immunizations CPT Code Status Date Vaccine Lot # [id number] Given 02/03/2019 Fluarix Quadrivalent, Preservative Free 0.5mL 69480 Given 03/10/2018 Fluarix Quadrivalent, Preservative Free 0.5mL 06814 Given 02/05/2017 Tetanus, Diphtheria Toxoids/Acellular Pertussis Vaccine 7 [place] > 73615 Given 02/05/2017 Fluarix Quadrivalent, Preservative Free 0.5mL 47394 Given 01/30/2015 Fluarix Quadrivalent, Preservative Free 0.5mL 17810 Given 01/28/2014 Fluarix Quadrivalent, Preservative Free 0.5mL 57793 Given 01/25/2013 Influenza Virus Vaccine Split Virus 3Yr Older [id number] 62085 Given 01/24/2012 Influenza Virus Split 3 Yrs And Above For Intramuscular Use 29177 Given 01/21/2011 Influenza Virus Split 3 Yrs And Above For Intramuscular Use 50115 Given 02/02/2010 Influenza Virus Split 3 Yrs And Above For Intramuscular Use 07035 Given 02/06/2009 Influenza Virus Split 3 Yrs And Above For Intramuscular Use 44607 Given 02/18/2008 Influenza Virus Split 3 Yrs And Above For Intramuscular Use 59132 Given 03/10/2007 Influenza Virus Split 3 Yrs And Above For Intramuscular Use 64121 Given 11/18/2006 Tetanus, Diphtheria Toxoids/Acellular Pertussis Vaccine 7 Or > 44415 Given 02/13/2006 Influenza Virus Split 3 Yrs And Above For Intramuscular Use Vital Signs Date Vital Result Comment 05/07/2019 2:39pm BP Systolic 128 mmHg BP Diastolic 80 mmHg Height 67 inches 5'7" Weight 240.00 lb BMI (Body Mass Index) 37.6 kg/m2 Heart Rate 83 /min O2 % BldC Oximetry 98 % 03/31/2019 3:04pm Height 66.5 inches Weight 246.50 lb BMI (Body Mass Index) 39.2 kg/m2 Heart Rate 78 /min Body Temperature 97.5 F O2 % BldC Oximetry 97 % Results Test Acquired Date Facility Test Result H/L Range Note .CBC Auto Diff 05/07/2019 [facility] <pending> [address] [facility] [place] [address] [phone] Laboratory test 05/07/2019 [facility] Total <pending> finding [address] [place], [place] [id number] [phone] Order 05/07/2019 [facility] Inhaler <pending> Training-Patient Demonstrates Competency Nitric Oxide <pending> PFT Supplies <pending> PFT With Bronchodilator <pending> Skin Test Seasonal and Environmental <pending> Lab Results 03/31/2019 N2N/CCD Import Lyme Screen W/ Reflex To WB Negative Babesia microti PCR Negative Babesia ducani Negative Babesia divergens/Mo-1 Negative 1 Anaplasma phagocytophilum Negative Ehrlichia chaffeensis Negative Ehrlichia ewingii/canis Negative Ehrlichia muris eauclairensis Negative 2 B. miyamotoi PCR, B Negative 3 Lab Results 03/24/2019 N2N/CCD Import Erythrocyte Sed Rate 2 mm/Hr 0-29 4 C Reactive Protein 1.54 mg/L 5 CBC Auto Diff 03/24/2019 N2N/CCD Import White Blood Count 9.5 10^3/uL 3.5-10.8 Red Blood Count 4.90 10^6/uL High 3.70-4.87 Hemoglobin 14.1 g/dL 12.0-16.0 Hematocrit 42 % 35-47 Mean Corpuscular Volume 85 fL 80-97 Mean Corpuscular Hemoglobin 29 pg 27-31 Mean Corpuscular HGB Conc 34 g/dL 31-36 Red Cell Distribution Width 13 % 10-15 Platelet Count 258 10^3/uL 150-450 Mean Platelet Volume 8.6 fL 7.4-10.4 Abs Neutrophils 7.7 10^3/uL 1.5-7.7 Abs Lymphocytes 1.2 10^3/uL 1.0-4.8 Abs Monocytes 0.5 10^3/uL 0-0.8 Abs Eosinophils 0.1 10^3/uL 0-0.6 Abs Basophils 0.0 10^3/uL 0-0.2 Abs Nucleated RBC 0.0 10^3/uL Granulocyte % 81.0 % Lymphocyte % 12.9 % Monocyte % 5.1 % Eosinophil % 0.8 % Basophil % 0.2 % Nucleated Red Blood Cells % 0.0 1 Lab Results 03/24/2019 N2N/CCD Import Sodium 141 mmol/L 135-145 Potassium 4.4 mmol/L 3.5-5.0 Chloride 104 mmol/L 101-111 Co2 Carbon Dioxide 30 mmol/L 22-32 Anion Gap 7 mmol/L 2-11 Calcium 9.8 mg/dL 8.6-10.3 Albumin 4.1 g/dL 3.2-5.2 Total Bilirubin 0.30 mg/dL 0.2-1.0 Glucose 96 mg/dL 70-100 Blood Urea Nitrogen 19 mg/dL 6-24 Creatinine 0.96 mg/dL High 0.51-0.95 BUN/Creatinine Ratio 19.8 1 8-20 Total Protein 6.4 g/dL 6.4-8.9 Globulin 2.3 g/dL 2-4 Albumin/Globulin Ratio 1.8 1 1-3 Alkaline Phosphatase 62 U/L 34-104 Alt 22 U/L 7-52 Ast 15 U/L 13-39 Egfr Non- 61.3 1 Egfr 74.1 1 6 CBC Auto Diff 02/25/2019 N2N/CCD Import White Blood Count 5.1 10^3/uL 3.5-10.8 Red Blood Count 4.74 10^6/uL 3.70-4.87 Hemoglobin 13.5 g/dL 12.0-16.0 Hematocrit 40 % 35-47 Mean Corpuscular Volume 85 fL 80-97 Mean Corpuscular Hemoglobin 28 pg 27-31 Mean Corpuscular HGB Conc 33 g/dL 31-36 Red Cell Distribution Width 13 % 10-15 Platelet Count 225 10^3/uL 150-450 Mean Platelet Volume 9.0 fL 7.4-10.4 Abs Neutrophils 3.1 10^3/uL 1.5-7.7 Abs Lymphocytes 1.3 10^3/uL 1.0-4.8 Abs Monocytes 0.4 10^3/uL 0-0.8 Abs Eosinophils 0.2 10^3/uL 0-0.6 Abs Basophils 0.0 10^3/uL 0-0.2 Abs Nucleated RBC 0.0 10^3/uL Granulocyte % 61.0 % Lymphocyte % 26.1 % Monocyte % 7.7 % Eosinophil % 4.6 % Basophil % 0.6 % Nucleated Red Blood Cells % 0.0 1 Lab Results 02/25/2019 N2N/CCD Import TSH (Thyroid Stim 1.34 mcIU/mL 0.34-5.60 Horm) Vitamin D Total 25(Oh) 42.8 ng/mL 20-50 7 Sodium 141 mmol/L 135-145 Potassium 4.1 mmol/L 3.5-5.0 Chloride 106 mmol/L 101-111 Co2 Carbon Dioxide 29 mmol/L 22-32 Anion Gap 6 mmol/L 2-11 Glucose 79 mg/dL 70-100 Blood Urea Nitrogen 16 mg/dL 6-24 Creatinine 0.97 mg/dL High 0.51-0.95 BUN/Creatinine Ratio 16.5 1 8-20 Calcium 9.8 mg/dL 8.6-10.3 Total Protein 6.3 g/dL Low 6.4-8.9 Albumin 4.2 g/dL 3.2-5.2 Globulin 2.1 g/dL 2-4 Albumin/Globulin Ratio 2.0 1 1-3 Total Bilirubin 0.30 mg/dL 0.2-1.0 Alkaline Phosphatase 62 U/L 34-104 Alt 16 U/L 7-52 Ast 16 U/L 13-39 Egfr Non- 60.5 1 Egfr 73.3 1 8 B-Type Natriuretic Peptide BNP 24 pg/mL D Dimer Quantitative < 200 ng/mL 9 1 ADDITIONAL INFORMATION This test was developed and its performance characteristics determined by [facility] in a manner consistent with CLIA requirements. This test has not been cleared or approved by the U.S. Food and Drug Administration. 2 ADDITIONAL INFORMATION This test was developed and its performance characteristics determined by [facility] in a manner consistent with CLIA requirements. This test has not been cleared or approved by the U.S. Food and Drug Administration. 3 ADDITIONAL INFORMATION This test was developed and its performance characteristics determined by [facility] in a manner consistent with CLIA requirements. This test has not been cleared or approved by the U.S. Food and Drug Administration. Test Performed by: [place] [address] Nuclear Scientist: Heath Mcmahon M.D. Ph.D.; CLIA# [id number] Please check labs 2 days before [...] mg/dl - FDP greater than 20 ug/ml Procedures Date Code Description Status 05/07/2019 20815 Nitric Oxide Gas Determination Completed 05/07/2019 43727 Allergy Tests Percutaneous W/ Allergenic Extracts Completed 05/07/2019 70120 Demonstration/Eval,Of Patient Utilization Of Completed Aerosol,Nebulizer 05/07/2019 11679 Bronchodilation Responsiveness Spirometry Pre/Post Completed Bronchodil Adm Medical Devices Description No Information Available Encounters Description No Information Available Assessments Date Code Description Provider 05/07/2019 J30.1 Allergic rhinitis due to pollen Paxton Treadwell MD 05/07/2019 J30.89 Other allergic rhinitis Paxton Treadwell MD 05/07/2019 J45.40 Moderate persistent asthma, uncomplicated Paxton Treadwell MD Plan of Treatment 05/07/2019 - Paxton Treadwell MDJ30.1 Allergic rhinitis due to pollenNew Medication:Qnasl 80 mcg/Act - 2 puffs each nostril every dayXyzal 5 mg - 1 tab by mouth every day as jlwpfiT65.89 Other allergic lbqdybqzB19.40 Moderate persistent asthma, uncomplicated Functional Status Description No Information Available Mental Status Description No Information Available Referrals Description No Information Available
--- OUTSIDE RECORDS SUMMARY | 2019-05-27 08:44 | XMS REPORT | Continuity of Care Document ---
:1965 External Reference #:[id number] Author Name Shirley Garcia N.P. (transmitted by agent of provider Brenda Powell) Address [address], [place] [address] Care Team Providers Name Role Phone Rosaura Swan MD - Internal Care Team Information Summer [employer] Counselor [phone] Medicine Joellen Guthrie MD - Internal Care Team Information Summer Camp Counselor [phone] Medicine Problems Active Problems Provider Date Asthma [...] Patient has never smoked Smoking Status Reviewed: 03/31/19 Patient has never smoked Exercise Type/Frequency Exercises sporadically Allergies, Adverse Reactions, Alerts Active Allergies Reaction Severity Comments Date No Known Drug Allergy 12/20/2009 Medications Active Medications SIG Qnty Indications Ordering Date Provider Advair Diskus inhale 1 puff 60units R05 Shirley Jose, 03/31/2019 250-50mcg/Dose by mouth two N.P. Aerosol times a day Azithromycin two tabs day 6tabs R05 Shirley Jose, 03/31/2019 250mg Tablets one, one daily N.P. till gone Hydroxychloroquine take 2 tablets 90tabs Adria Grier, 06/09/2018 Sulfate by mouth every M.D. 200mg Tablets day ongoing D3 Super Strength take one 90caps Shirley Garcia, 02/05/2017 2000Unit capsule/tablet N.P. Capsules daily by mouth Omeprazole Take 1 Capsule 30caps R06.02 Shirley Garcia, 06/20/[address] By Mouth Every N.P. Day Fluticasone Propionate spray one 16units Shirley Garcia, 04/22/2012 spray in each N.P. 50mcg/Act Suspension nostril once daily Magnesium 1 by mouth Unknown 400mg Tablets every day (OTC) Naproxen Sodium 1 tab as Unknown 220mg Tablets needed Multi Complete daily Unknown Capsules Hair/Skin/Nails 1 - 2 by mouth Unknown Tablets every day Slow Fe 1 by mouth Unknown 160(50Fe) mg Tablets ER every day Claritin 1 tablet dailY 90caps Estephania Juan, 10mg Capsules M.D., FACP History Medications Fluconazole one by mouth 5tabs Shirley Garcia, [...] Code Status Date Vaccine Reaction Lot # [id number] Given 02/03/2019 Influenza Virus Vaccine, Quadrivalent, Split, Preservative Free 43928 Given 03/10/2018 Influenza Virus Vaccine, Quadrivalent, Split, Preservative Free 52326 Given 02/05/2017 Tdap - [id number] Tetanus/Diptheria/Acellula r Pertussis 50594 Given 02/05/2017 Influenza Virus Vaccine, [id number] Quadrivalent, Split, Preservative Free 21229 Given 02/05/2016 Influ Virus Vaccine, no reaction noted ... [id number] Quadrivalent, Split Virus, [id number] [address] Given 01/30/2015 Influenza Virus Vaccine, [id number] Quadrivalent, Split, Preservative Free 02424 Given 01/28/2014 Influenza Virus Vaccine, [id number] Quadrivalent, Split, Preservative Free 35124 Given 01/25/2013 Flu Vaccine Split Virus [id number] Preservative Free For Indiv 3Yr Older [id number] Given 01/24/2012 Fluzone Vaccine [id number] 59543 Given 01/21/2011 Influenza Virus 3Yrs & [id number] Over 67718 Given 02/02/2010 Influenza Virus 3Yrs & Over 18471 Given 02/06/2009 Influenza Virus 3Yrs & Over 97820 Given 02/18/2008 Influenza Virus 3Yrs & Over 64535 Given 03/10/2007 Influenza Virus 3Yrs & Over 79360 Given 11/18/2006 Tdap - Tetanus/Diptheria/Acellula r Pertussis 18914 Given 02/13/2006 Influenza Virus 3Yrs & Over Vital Signs Date Vital Result Comment 03/31/2019 3:04pm Height 66.5 inches 5'6.50" Weight 246.50 lb Heart Rate 78 /min BP Systolic Sitting 128 mmHg BP Diastolic Sitting 75 mmHg Body Temperature 97.5 F O2 % BldC Oximetry 97 % BMI (Body Mass Index) 39.2 kg/m2 03/11/2019 10:47am Height 66.5 inches 5'6.50" Weight 246.38 lb Heart Rate 66 /min BP Systolic Sitting 122 mmHg Body Temperature 98.0 F O2 % BldC Oximetry 98 % BMI (Body Mass Index) 39.2 kg/m2 Results Test Acquired Date Facility Test Result H/L Range Note Laboratory test 03/24/2019 [facility] Erythrocyte Sed 2 mm/Hr Normal 0-29 [address] [place] [address] [phone] C Reactive Protein 1.54 mg/L Normal <8.01 2 CBC Auto 03/24/2019 [facility] White Blood 9.5 10^3/uL Normal 3.5-10.[address] Count [place], [place] [id number] [phone] Red Blood Count 4.90 10^6/uL High 3.70-4.87 [...] Blood Cells % 0.0 Comp Metabolic 03/24/2019 [facility] Sodium 141 mmol/L Normal 135-[address] [place] [address] [phone] Potassium 4.4 mmol/L Normal 3.5-5.0 Chloride 104 [...] Egfr Non- 61.3 >60 Egfr 74.1 >60 3 CBC Auto 02/25/2019 [facility] White Blood 5.1 10^3/uL Normal 3.5-10.[address] [place] [place] [address] [phone] Red Blood Count 4.74 10^6/uL Normal 3.70-4.87 [...] Red Blood Cells % 0.0 Laboratory 02/25/2019 [facility] TSH (Thyroid 1.34 Normal 0.34 -5.[address] Stim Horm) mcIU/[place] [address] [phone] Vitamin D Total 25(Oh) 42.8 ng/mL Normal 20-50 4 Comp Metabolic 02/25/2019 [facility] Sodium 141 mmol/L Normal 135-[address] [place] [address] [phone] Potassium 4.1 mmol/L Normal 3.5-5.0 Chloride 106 [...] Egfr Non- 60.5 >60 Egfr 73.3 >60 5 Laboratory test 02/25/2019 [facility] B-Type 24 pg/mL <=[address] [place] [address] Peptide BNP [phone] D Dimer Quantitative < 200 ng/mL Normal Less Than 230 6 Order 02/24/2019 [facility] In-House EKG viewed by Dr. Lyons Urinalysis Profile 12/23/2018 [facility] Urine Color Yellow [address] [place] [address] [phone] Urine Appearance Cloudy Urine Specific Gary 1.023 Normal 1.010-1.030 Urine pH 5.0 Normal 5-9 Urine Urobilinogen Negative Negative Urine Ketones Negative Negative Urine Protein Negative Negative Urine Leukocytes Negative Negative Urine Blood Negative Negative * * Abnormal Negative 7 Urine Nitrite Negative Negative Urine Bilirubin Negative Negative Urine Glucose Negative Negative Laboratory test 12/17/2018 [facility] Erythrocyte Sed 8 mm/Hr Normal 0-[address] [place] [address] [phone] C Reactive Protein 3.58 mg/L Normal <8.01 CBC Auto 12/17/2018 [facility] White Blood 4.2 10^3/uL Normal 3.5-10.[address] [place] [place] [address] [phone] Red Blood Count 4.93 10^6/uL High 3.70-4.87 [...] Blood Cells % 0.0 Comp Metabolic 12/17/2018 [facility] Sodium 141 mmol/L Normal 135-[address] [place] [address] [phone] Potassium 4.5 mmol/L Normal 3.5-5.0 Chloride 106 [...] Egfr Non- 59.8 >60 Egfr 72.4 >60 8 1 Please check labs 2 days before follow up 2 Please check labs 2 days before follow up 3 Because ethnic data is not always readily [...] 15-29 5 Kidney failure <15 (or dialysis) 4 Total 25-Hydroxyvitamin D2 and D3 (25-OH-VitD) <10 ng/mL (severe deficiency) 10-19 ng/mL (mild to moderate deficiency) 20-50 ng/mL (optimum levels) 51-80 ng/mL (increased risk of hypercalciuria) >80 ng/mL (toxicity possible) 5 Because ethnic data is not always readily [...] 15-29 5 Kidney failure <15 (or dialysis) 6 Please note: The following may produce a false positive D Dimer test: - Rheumatoid factor greater than 60 IU/ml - Plasma hemoglobin greater than 0.05 gm/dl - Bilirubin greater than 50 mg/dl - Lipids greater than 1000 mg/dl - FDP greater than 20 ug/ml 7 *Ascorbic acid is present which may interfere with detection of blood. 8 Because ethnic data is not always [...] (or dialysis) Procedures Date Code Description Status 02/24/2019 10263 EKG Tracing & Interpretation Completed 06/29/2018 [id number] Colonoscopy Completed 05/22/2018 [id number] Mammogram Completed 04/24/2018 [id number] Diabetic Retinal Eye Exam Completed 03/18/2017 [id number] Mammogram Completed 04/29/2016 [id number] Diabetic Retinal Eye Exam Completed 03/01/2016 [id number] Mammogram Completed 02/28/2015 [id number] Mammogram Completed 02/24/2014 [id number] Mammogram Completed 02/04/2013 [id number] Mammogram Completed 08/12/2012 [id number] Mammogram Completed 02/04/2012 [id number] Mammogram Completed 02/08/2011 [id number] Mammogram Completed 01/16/2009 [id number] Mammogram Completed Medical Devices Description No Information Available Encounters Type Date Location Provider Dx Diagnosis Office Visit 03/11/2019 [facility] Internal Shirley Garcia, J20.9 Acute bronchitis , 10:40a Medicine - Ccmob N.P. unspecified Office Visit 02/24/2019 [facility] Internal Thomas Lyons MD R05 Cough 4:40p Medicine - [address] R07.89 Other chest pain R06.2 Wheezing R53.83 Other fatigue R06.02 Shortness of breath R94.4 Abnormal results of kidney function studies Office Visit 02/10/2019 2:40p [facility] Internal Medicine - Ambar Chung M.D. 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 03/31/2019 R53.81 Other malaise Shirley Garcia, N.P. 03/11/2019 J20.9 Acute bronchitis, unspecified Shirley Garcia, [...] polyarthropathy Adria Grier M.D. 12/23/2018 Z79.899 Other senior living (current) drug therapy Adria Grier M.D. 12/23/2018 R31.9 Hematuria, unspecified Adria Grier M.D. 12/23/2018 R94.4 Abnormal results of kidney function studies Adria Grier M.D. Plan of Treatment Future Appointment(s):05/03/2019 2:20 pm - Shirley Garcia [facility]ota at [facility] Internal Medicine - [facility]03/31/2019 - Shirley Garcia N.P.R05 CoughNew Medication:Advair Diskus 250-50 mcg/Dose - inhale 1 puff by mouth two times a dayAzithromycin 250 mg - two tabs day one, one daily till goneComments:You are having an asthmatic response to your recent illness. I have prescribed another antibiotic, Azithromycin. Take 2 tablets today, then one daily, for a total of 5 days. This stays in your system for 5 more days.I also prescribed a different inhaler, Advair. Take 1 inhalation, twice daily. Stay onthis for the next month.Touch base with the office early next week to report how you are doing.R53.81 Other malaiseComments:I have ordered blood work to screen for Lyme disease and tick borne illnesses. The office will contact you with your results. Functional Status Description No Information Available Mental Status Description No Information Available Referrals Description No Information Available
--- NOTE | 2019-05-27 09:53 | ED ---
Complex/Multi-Sys Presentation - HPI Summary HPI Summary: 53 year old F arriving via private car complains of worsening nausea, back pain , LUQ and epigastric pain, posterior left knee pain, intermittent productive cough, light headedness, fatigue, weakness, occasional left shoulder pain, "fullness and beating in my head," "hearing and feeling blood simpson in my head" since December 2018. Patient states she was too nauseous to go to work this morning and decided to come to the ED. Patient reports dx sinusitis in mid December 2018 and has since taken four courses of antibiotics. Has been on two courses of prednisone, once in January 2019 and once April 2019. Patient was referred to the grocery store associate who placed patient on medications and nasal spray with no relief and was referred to ENT. Patient has been seeing Dr. Hernandez ENT. Had sinus CT done 1 week ago which showed that she still had sinus infection. Had abdomen CT done 1 week ago which was normal. Had left ear tube placed on Friday05/25/2019 for which she is on 3-day course of antibiotics. Patient also prescribed ondansetron which she has been taking with no relief. Patient states she is not taking any new pain medications. No hx asthma. No hx COPD. Patient denies fever, chills, erythema of eyes, sore throat, jaw pain, chest pain, shortness of breath, vomiting/diarrhea, constipation, dysuria, hematuria, myalgia, edema, rash, dizziness, slurred speech, difficultly with balance, tingliness or numbness in arms. Symptoms rated 0/10 in severity. Symptoms aggravated by nothing. Symptoms alleviated by nothing. Patient has tried Flonase with no relief. Medications reviewed. Allergies noted. Negative FHx PE and DVT. - History Of Current Complaint Chief Complaint: EDGeneral Hx Obtained From: Patient Onset/Duration: Still Present, Other - Mid December 2018 Severity Currently: None Aggravating Factor(s): Nothing Alleviating Factor(s): Nothing Associated Signs And Symptoms: Positive: Other - NEG: fever, chills, erythema of eyes, sore throat, jaw pain, chest pain, shortness of breath, nausea/vomiting /diarrhea, constipation, dysuria, hematuria, myalgia, edema, rash, dizziness, slurred speech, difficultly with balance, tingliness or numbness in arms - Allergies/Home Medications Allergies/Adverse Reactions: Allergies Allergy/AdvReac Type Severity Reaction Status Date / Time No Known Allergies Allergy Verified 05/27/19 08:42 PMH/Surg Hx/FS Hx/Imm Hx Endocrine/Hematology History: Denies: Hx Diabetes Cardiovascular History: Denies: Hx Hypertension Respiratory History: Reports: Hx Asthma - exercised induced ?? Denies: Hx Chronic Obstructive Pulmonary Disease (COPD) History: Denies: Hx Renal Disease Musculoskeletal History: Denies: Hx Rheumatoid Arthritis, Hx Osteoporosis - Cancer History Hx Chemotherapy: No Hx Radiation Therapy: No - Surgical History Surgery Procedure, Year, and Place: 2 ovarian cysts and ~2009, d&c, wisdom teeth extraction, bilat ear tubes. Infectious Disease History: No Infectious Disease History: Denies: Traveled Outside the [place] in Last 30 Days - Family History Known Family History: Positive: Other - breast CA Negative: Diabetes - Social History Alcohol Use: Occasionally Substance Use Type: Reports: None Hx Tobacco Use: No Smoking Status (MU): Never Smoked Tobacco Review of Systems Positive: Fatigue. Negative: Fever, Chills Negative: Erythema Positive: Other - "fullness and beating in my head," "hearing and feeling blood simpson in my head". Negative: Sore Throat Negative: Chest Pain Positive: Cough. Negative: Shortness Of Breath Gastrointestinal: Negative - constipation Positive: Abdominal Pain, Nausea. Negative: Vomiting, Diarrhea Negative: dysuria, hematuria Positive: Other - posterior left knee pain, occasional left shoulder pain. Negative: Myalgia, Edema Negative: Rash Neurological: Negative - dizziness, slurred speech, difficultly with balance, tingliness or numbness in arms, Other - light headedness Positive: Weakness All Other Systems Reviewed And Are Negative: Yes Physical Exam - Summary Physical Exam Summary: Constitutional: Well-developed, Well-nourished, Alert. (-) Distressed Skin: Warm, Dry HENT: Normocephalic; Atraumatic Eyes: Conjunctiva normal Neck: Musculoskeletal ROM normal neck. (-) JVD, (-) Stridor, (-) Tracheal deviation Cardio: Rhythm regular, rate normal, Heart sounds normal; Intact distal pulses; The pedal pulses are 2+ and symmetric. Radial pulses are 2+ and symmetric. (-) Murmur Pulmonary/Chest wall: Effort normal. (-) Respiratory distress, (-) Wheezes, (-) Rales Abd: Soft, (-) tenderness, (-) Distension, (-) Guarding, (-) Rebound Musculoskeletal: (-) Edema Lymph: (-) Cervical adenopathy Neuro: Alert, Oriented x3 Psych: Mood and affect Normal Triage Information Reviewed: Yes Vital Signs On Initial Exam: Initial Vitals Temp Pulse Resp BP Pulse Ox 97.9 F 81 16 159/93 99 05/27/19 08:39 05/27/19 08:39 05/27/19 08:39 05/27/19 08:39 05/27/19 08:39 Vital Signs Reviewed: Yes Procedures - Sedation Patient Received Moderate/Deep Sedation with Procedure: No Diagnostics - Vital Signs Vital Signs Temp Pulse Resp BP Pulse Ox 05/27/19 08:39 97.9 F 81 16 159/93 99 - Laboratory Result Diagrams: 05/27/19 09:41 05/27/19 11:04 Lab Statement: Any lab studies that have been ordered have been reviewed, and results considered in the medical decision making process. - CT Chest/Thorax CTA CT Interpretation Completed By: Radiologist Summary of CT Findings: NO PULMONARY ARTERIAL FILLING DEFECT TO SUGGEST PULMONARY EMBOLISM. ED physician has reviewed this imaging report. Re-Evaluation - Re-Evaluation First Eval Re-Evaluation Time: 13:18 Comment: patient agrees to discharge Complex Multi-Symp Course/Dx Course Of Treatment: 53 year old F complains of worsening nausea, back pain, LUQ and epigastric pain, posterior left knee pain, intermittent productive cough , light headedness, fatigue, weakness, occasional left shoulder pain, "fullness and beating in my head," "hearing and feeling blood simpson in my head" since December 2018. Dx sinusitis in mid December 2018 and has since taken four courses of antibiotics. Has been on two courses of prednisone, once in January 2019 and once April 2019. Patient was referred to the grocery store associate who placed patient on medications and nasal spray with no relief and was referred to ENT. Patient has been seeing Dr. Hernandez ENT. Had sinus CT done 1 week ago which showed that she still had sinus infection. Had abdomen CT done 1 week ago which was normal. Had left ear tube placed on Friday05/25/2019 for which she is on 3- day course of antibiotics. Patient also prescribed ondansetron which she has been taking with no relief. Patient states she is not taking any new pain medications. Patient denies fever, chills, erythema of eyes, sore throat, jaw pain, chest pain, shortness of breath, nausea/vomiting/diarrhea, constipation, dysuria, hematuria, myalgia, edema, rash, dizziness, slurred speech, difficultly with balance, tingliness or numbness in arms. Patient has tried Flonase with no relief. Negative FHx PE and DVT. Physical exam unremarkable. Bloodwork results with no significant abnormalities except for RBC 4.91, creatinine 1.04. Troponin negative. Chest/Thorax CTA shows per radiologist: NO PULMONARY ARTERIAL FILLING DEFECT TO SUGGEST PULMONARY EMBOLISM. In the ED course, the patient was given normal saline fluids and prednisone. Imaging is negative. No masses or pulmonary emobli were visualized on imaging. No pneumonia visualized on imaging. Pertussis is pending at time of discharge. Consider this allergic mediated vs related to sinusitis. We reviewed the medical records from last week which showed CT abdomen was negative. Patient will be discharged home with prescription for prednisone and Reglan and follow up from her primary care provider in 3 days and ENT in 1 week. Patient states she had pulmonary function testing done and will follow up with her coding coordinator with the results. Patient was instructed to return to Emergency Department for new or worsening symptoms. Patient understands and is agreeable to this plan. - Diagnoses Provider Diagnoses: Sinusitis, Cough Discharge ED - Sign-Out/Discharge Documenting (check all that apply): Patient Departure - Discharge Plan Condition: Stable Disposition: HOME Prescriptions: methylPREDNISolone [Medrol Dosepak 4 MG*] 1 mg PO .SEE SHIRA INSTRUCTION #1 packet Metoclopramide TAB* [Reglan TAB*] 10 mg PO Q8H PRN #15 tab PRN Reason: Nausea Patient Education Materials: Sinusitis (ED) Forms: *Work Release Referrals: Joellen Guthrie MD [Primary Care Provider] - 3 Days Dustin Hernandez MD [Medical Doctor] - 1 Week Additional Instructions: Follow up with Dr. Guthrie in 3 days. Follow up with Dr. Hernandez in 1 week. Follow up with your coding coordinator in 1 week for results. Return to the Emergency Department for new or worsening symptoms. - Attestation Statements Document Initiated by Scribe: Yes Documenting Scribe: Sarah Arriaga Provider For Whom Scribe is Documenting (Include Credential): Grabiel Gonzalez MD Scribe Attestation: Sarah Dotson, scribed for Grabiel Gonzalez MD on 05/27/19 at 1412.
[2019-05-27 09:56] LABS: Hematocrit 42 % (35-47); Mean Corpuscular HGB Conc 34 g/dL (31-36); Mean Corpuscular Hemoglobin 29 pg (27-31); Mean Corpuscular Volume 85 fL (80-97); Red Blood Count 4.91 10^6 /uL (3.70-4.87); Red Cell Distribution Width 14 % (10-15)
[2019-05-27 10:05] LABS: ALT 20 U/L (7-52); Albumin/Globulin Ratio 1.6 (1-3); Alkaline Phosphatase 61 U/L (34-104); BUN/Creatinine Ratio 15.4 (8-20); Blood Urea Nitrogen 16 mg/dL (6-24); C Reactive Protein 5.09 mg/L (<8.01); CO2 Carbon Dioxide 27 mmol/L (22-32); Calcium 8.9 mg/dL (8.6-10.3); Chloride 108 mmol/L (101-111); EGFR African American 67.6 (>60); EGFR Non-African American 55.9 (>60); Globulin 2.5 g/dL (2-4); Glucose 78 mg/dL (70-100); Sodium 140 mmol/L (135-145); Total Protein 6.5 g/dL (6.4-8.9)
[2019-05-27 10:08] LABS: Activated Partial Thrombo Time 33.6 seconds (26.0-38.0); INR 0.91 (0.82-1.09)
[2019-05-27 10:22] LABS: Mean Platelet Volume 8.7 fL (7.4-10.4); Platelet Count 244 10^3/uL (150-450); White Blood Count 5.2 10^3/uL (3.5-10.8)
[2019-05-27 10:55] LABS: Anion Gap 5 mmol/L (2-11)
[2019-05-27] MEDS ORDERED: NS 0.9% 1000 ML** 1,000 ML IV ONE (10:56)
[2019-05-27] MEDS ORDERED: Iodixanol* (CONTRAST) 320 MG/ML 100 ML SDV IV ONE (11:05)
[2019-05-27 11:34] LABS: Potassium Redraw 4.7 mmol/L (3.5-5.0)
[2019-05-27 12:45] LABS: Influenza A Molecular Negative (Negative); Influenza B Molecular Negative (Negative)
[2019-05-27 13:44] VITALS: BP 112/64
== END 2019-05-27 14:32 | disposition home or self-care (01) ==
LOC: ED 08:37
DX: J32.9 Chronic sinusitis, unspecified (principal); R05 Cough; M25.562 Pain in left knee; M25.512 Pain in left shoulder; M54.9 Dorsalgia, unspecified; R10.13 Epigastric pain; J45.909 Unspecified asthma, uncomplicated
CPT/HCPCS: 36415; 71275; 80053; 84484; 85027; 85610; 85730; 86140; 87798; 96360; 99282; J7512; Q9967